=== PATIENT | female | born 1965 | race Hispanic/Latino ===

== ENCOUNTER 2018-01-02 07:57 | Day surgery (SDC) | payer OTHER ==
[2018-01-02] MEDS ORDERED: Lactated Ringer's 1,000 ML IV ONE (08:18)
[2018-01-02 09:10] VITALS: O2SAT 100
[2018-01-02] MEDS ORDERED: Propofol 10 mg/ml Inj (20 ML) ONE ×2 (10:18→10:48)
[2018-01-02] MEDS ORDERED: Lidocaine PF 2% (5 ml) Inj (For Cardiac Arrhy) IV ONE (10:18)
[2018-01-02 11:01] VITALS: RESP 13; TEMP 97
[2018-01-02 11:15] VITALS: BP 100/60; PULSE 66
== END 2018-01-02 11:44 | disposition home or self-care (01) ==
LOC: H.ENDO 07:57
PROVIDERS: ATTEND Internal Medicine Gastroenterology
DX: Z12.11 Encounter for screening for malignant neoplasm of colon (principal); E11.9 Type 2 diabetes mellitus without complications; E78.5 Hyperlipidemia, unspecified; K57.30 Diverticulosis of large intestine without perforation or abscess without bleeding; R19.7 Diarrhea, unspecified; K22.8 Other specified diseases of esophagus; K20.9 Esophagitis, unspecified; K29.70 Gastritis, unspecified, without bleeding
CPT/HCPCS: 43239; 45380; 82948; 88305; 88312; 88313; 88342; J2704; J7120

== ENCOUNTER 2018-04-03 08:26 | Day surgery (SDC) | payer OTHER ==
[2018-04-03] MEDS ORDERED: Lactated Ringer's 500 ML IV ONE (08:52)
[2018-04-03] MEDS ORDERED: Propofol 10 mg/ml Inj (20 ML) ONE (10:15)
[2018-04-03 10:53] VITALS: TEMP 97
[2018-04-03 10:54] VITALS: BP 110/67; PULSE 88; RESP 20; O2SAT 100
== END 2018-04-03 10:56 | disposition home or self-care (01) ==
LOC: H.ENDO 08:26
PROVIDERS: ATTEND Internal Medicine Gastroenterology
DX: R12 Heartburn (principal); K29.70 Gastritis, unspecified, without bleeding; K22.2 Esophageal obstruction; K22.10 Ulcer of esophagus without bleeding; K20.0 Eosinophilic esophagitis; E11.9 Type 2 diabetes mellitus without complications; E78.5 Hyperlipidemia, unspecified
CPT/HCPCS: 43239; 82948; 88305; J2001; J2704; J7120

== ENCOUNTER 2018-07-10 07:42 | Day surgery (SDC) | payer OTHER ==
[2018-07-10] MEDS ORDERED: Lactated Ringer's 500 ML IV ONE (07:59)
[2018-07-10 08:14] VITALS: TEMP 97; O2SAT 100
[2018-07-10] MEDS ORDERED: Propofol 10 mg/ml Inj (20 ML) ONE (09:01)
[2018-07-10] MEDS ORDERED: Lactated Ringer's 500 ML IV SCH (09:30)
[2018-07-10 09:49] VITALS: BP 118/70; PULSE 66; RESP 16
== END 2018-07-10 12:49 | disposition home or self-care (01) ==
LOC: H.ENDO 07:42
PROVIDERS: ATTEND Internal Medicine Gastroenterology
DX: K20.0 Eosinophilic esophagitis (principal); E78.5 Hyperlipidemia, unspecified; K29.50 Unspecified chronic gastritis without bleeding
CPT/HCPCS: 43239; 88305; J2001; J2704; J7120